=== PATIENT | male | born 1990 | race Caucasian/White ===

== ENCOUNTER 2021-03-18 02:16 | Emergency (ER) | payer OTHER ==
[~2021-03-18] VITALS: Ht 180.3 cm; Wt 77.1 kg
[2021-03-18] MEDS ORDERED: LORAZEPAM 1 MG TABLET PO ONE (03:30)
--- NOTE | 2021-03-18 03:30 | NUR ---
presented to the emergency department for c/o anxiety and depression and having thoughts of hurting himself. last drink: yesterday. appears very anxious. placed in bed 12 on SI precaution. will cont to monitor
[2021-03-18] MEDS ORDERED: LORAZEPAM 1 MG TABLET ONE (04:22)
[2021-03-18 04:36] LABS: BILIRUBIN,URINE NEGATIVE (NEGATIVE); COLOR,URINE YELLOW (YELLOW); LEUKOCYTE ESTERASE ,URINE NEGATIVE (NEGATIVE); NITRITE, URINE NEGATIVE (NEGATIVE); PROTEIN,URINE 30 mg/dl (NEGATIVE); UGLUCOSE NEGATIVE (NEGATIVE); UROBILINOGEN,URINE 0.2 EU/dL (0.2)
[2021-03-18 04:39] LABS: BASOPHILS % (AUTO) 0.3 % (0.0-2.0); EOSINOPHILS % (AUTO) 0.1 % (0.0-6.0); HEMATOCRIT 40 % (39-51); HEMOGLOBIN 13.8 g/dL (13.5-17.5); LYMPHOCYTES # (AUTO) 1.1 K/uL (0.8-4.8); LYMPHOCYTES % (AUTO) 10.9 % (20.0-44.0); MEAN CORPUSCULAR HGB CONC 35 g/dl (31.0-36.0); MEAN CORPUSCULAR VOLUME 92 fL (80-96); MONOCYTES # (AUTO) 0.8 K/uL (0.1-1.30); NEUTROPHILS # (AUTO) 8.4 K/uL (1.8-8.9); NEUTROPHILS % (AUTO) 80.7 % (43.0-81.0); PLATELET COUNT (AUTO) 195 K/uL (150-450); RED BLOOD CELL COUNT(AUTO) 4.35 MIL/uL (4.5-6.0); WHITE BLOOD COUNT (AUTO) 10.4 K/uL (4.3-11.0)
[2021-03-18 04:58] LABS: CALCIUM, SERUM 9.2 mg/dL (8.5-10.1); CARBON DIOXIDE 28 mmol/L (21-32); CHLORIDE 96 mmol/L (98-107); GLUCOSE 107 mg/dL (74-106); POTASSIUM 3.9 mmol/L (3.5-5.1); SODIUM SERUM 135 mmol/L (136-145); UREA NITROGEN, BLOOD 18 mg/dL (7-18)
[2021-03-18 05:04] LABS: ALANINE AMINOTRANSFERASE 35 U/L (12-78); ALBUMIN 3.9 g/dL (3.4-5.0); ALKALINE PHOSPHATASE 63 U/L (46-116); ASPARTATE AMINOTRANSFERASE 28 U/L (15-37); BILIRUBIN,DIRECT 0.2 mg/dL (0.0-0.2); BILIRUBIN,TOTAL 0.6 mg/dL (0.2-1.0); TOTAL PROTEIN, SERUM 7.7 g/dL (6.4-8.2)
--- NOTE | 2021-03-18 05:05 | NUR ---
Melita bullock in [facility] - 03/18/21 at 0751 by SMOOTH CALLED SHAUN SMITH FROM CRISIS TEAM FOR EVALUATION AND LEFT A MESSAGE.
[2021-03-18 05:06] LABS: ACETAMINOPHEN 0 ug/ml (10-30); ALCOHOL, BLOOD < 3 mg/dL (0-0)
--- NOTE | 2021-03-18 06:01 | NUR ---
faxed face sheet and clincals to [facility]
[2021-03-18 07:02] LABS: BACTERIA,URINE Rare /HPF (None Seen); RBC,URINE 0-2 /HPF (0-2); SQUAMOUS EPITHELIAL CELL,UR Rare /HPF (None Seen); WBC,URINE 0-2 /HPF (0-3)
--- NOTE | 2021-03-18 07:40 | NUR ---
PATIENT AMBULATED TO THE RESTROOM, STEADY GAIT
--- NOTE | 2021-03-18 08:03 | NUR ---
CALLED [facility] HAVE THE [facility]ICALS AND AWAITING FEEDBACK.
[2021-03-18 12:02] VITALS: BP 141/84
--- NOTE | 2021-03-18 14:54 | NUR ---
THE PATIENT IS ACCPEPTED TO [facility] UNDER DR HUTCHINSON
--- NOTE | 2021-03-18 15:08 | NUR ---
ACCEPTED AT [facility] UNDER DR. HUTCHINSON [phone].
--- NOTE | 2021-03-18 15:13 | NUR ---
[facility] VIA [facility], ETA 60 TO 70 MINS.
--- NOTE | 2021-03-18 15:51 | NUR ---
[facility] CANCELLED.
--- NOTE | 2021-03-18 15:55 | NUR ---
REPORT GIVEN TO NURSE SOLANO FOR [facility]
== END 2021-03-18 15:56 ==
LOC: ER 02:16
DX: F41.9 Anxiety disorder, unspecified (principal); F32.A Depression, unspecified; R45.851 Suicidal ideations; F15.10 Other stimulant abuse, uncomplicated; R00.0 Tachycardia, unspecified; Z20.822 Contact with and (suspected) exposure to COVID-19
CPT/HCPCS: 36415; 80048; 80076; 80143; 80307; 80320; 81001; 85025; 87426; 93005; 99285; C9803; G0480